=== PATIENT | male | born 1960 | race Caucasian/White ===

== ENCOUNTER → 2018-03-22 | Outpatient (CLI) | payer OTHER ==
[~2018-03-22] MED LIST: AMT50 PO; OXYC-57 PO; PRED10TA PO; PREG1CAP28 PO
--- NOTE | 2018-03-22 16:09 | DIAGNOSTIC IMAGING REPORT ---
LUMBAR SPINE MRI HISTORY: LUMBAR RADICULOPATHY TECHNIQUE: Multiplanar multisequence MRI of the lumbar spine was performed without the use of contrast. COMPARISON: None. FINDINGS: For the purpose of the report the L5-S1 disc space will be located on axial image 23 of 25. No fracture or subluxation within the lumbar spine. The conus terminates at the L1 level. Paraspinal soft tissues are unremarkable. Mild disc space narrowing at L2-L3, L3-L4, and L4-L5. There is mild motion artifact. L1-L2: No significant central canal or neural foraminal narrowing. L2-L3: Small broad-based posterior disc bulge without significant central canal or neural foraminal narrowing. L3-L4: Small broad-based posterior disc bulge without significant central canal or neural foraminal narrowing. L4-L5: Small broad-based posterior disc bulge without significant central canal or left-sided neural foraminal narrowing. There is a focal right foraminal/extraforaminal disc protrusion best seen on axial images 17 and 18. This measures approximately 8 x 4 mm. This compresses the exiting right L4 nerve root best seen on image 17. This results in moderate right neural foraminal narrowing. L5-S1: No significant central canal or neural foraminal narrowing. IMPRESSION: 1. There is a focal right foraminal/extraforaminal disc protrusion at L4-L5 which compresses the exiting right L4 nerve root . 2. Mild degenerative disc disease at L2-L3 and L3-L4. Electronically signed by: Dannie Galo M.D. 03/22/2018 4:07 PM Dictated Date/Time: 03/22/2018 3:59 PM
== END | disposition home or self-care (01) ==
LOC: C.MRI 14:47
DX: M51.16 Intervertebral disc disorders with radiculopathy, lumbar region (principal)